=== PATIENT | male | born 1975 | race Caucasian/White ===

== ENCOUNTER → 2018-12-14 10:49 | Outpatient (CLI) | payer OTHER, MEDICAID, SELFPAY ==
--- NOTE | 2018-12-14 10:51 | DI.RAD.S_ITS ---
PROCEDURE: XR RIBS RT MIN 3V W CXR 1V INDICATIONS: R rib pain and scapula pain TECHNIQUE: 2 views of the right ribs were acquired, along with a single view chest. COMPARISON: None. FINDINGS: Surgical changes and devices: None. Bones and chest wall: No fractures or dislocations. No suspicious bony lesions. Overlying soft tissues appear unremarkable. Lungs and pleura: No pleural effusions or pneumothorax. Lungs appear clear. Mediastinum: Mediastinal contours appear normal. Heart size is normal. IMPRESSION: No acute disease. No radiographically visible rib fracture. Dictated by: Wil Bennett M.D. on 12/14/2018 at 12:50 Approved by: Wil Bennett M.D. on 12/14/2018 at 12:54
--- NOTE | 2018-12-14 10:51 | DI.RAD.S_ITS ---
PROCEDURE: XR SCAPULA RT INDICATIONS: R rib pain and scapula pain TECHNIQUE: 3 views of the scapula were acquired. COMPARISON: None. FINDINGS: Bones: No fractures or dislocations. No suspicious bony lesions. Visualized ribs appear intact. The scapula is intact. No fractures of the scapular spine or coracoid process are evident. Soft tissues: Overlying soft tissues appear normal. IMPRESSION: No acute osseous abnormality of the right shoulder. Dictated by: Landen Rao M.D. on 12/14/2018 at 10:27 Approved by: Landen Rao M.D. on 12/14/2018 at 10:28
== END ==
PROVIDERS: Visit Provider Physician Assistant
DX: R07.81 Pleurodynia (principal); M89.8X1 Other specified disorders of bone, shoulder; M25.511 Pain in right shoulder
CPT/HCPCS: 71101; 73010